=== PATIENT | male | born 1965 | race Caucasian/White ===

== ENCOUNTER 2017-02-01 04:45 | Emergency (ER) | payer SELFPAY ==
[2017-02-01 05:29] LABS: APPEARANCE,URINE CLEAR; BILIRUBIN,URINE NEGATIVE (NEGATIVE); GLUCOSE, URINE NEGATIVE (NEGATIVE); KETONES,URINE NEGATIVE (NEGATIVE); LEUKOCYTE ESTERASE,URINE NEGATIVE (NEGATIVE); NITRITE,URINE NEGATIVE (NEGATIVE); PROTEIN,URINE NEGATIVE (NEGATIVE); URINE SPECIFIC GRAVITY 1.014; UROBILINOGEN,URINE NEGATIVE mg/dL (<2.0)
[2017-02-01 05:51] LABS: ABSOLUTE LYMPHOCYTES (AUTO) 0.9 10^3/uL (0.5-4.7); ABSOLUTE MONOCYTES (AUTO) 0.5 10^3/uL (0.1-1.4); ABSOLUTE NEUT (AUTO) 8.7 10^3/uL (1.7-8.2); BASOPHILS % (AUTO) 0.4 % (0-2); EOSINOPHILS % (AUTO) 0.4 % (0-6); HEMATOCRIT 45.7 % (37.9-51.0); HEMOGLOBIN 15.8 g/dL (13.5-17.0); HGB HCT DIFFERENCE 1.7; LYMPHOCYTES % (AUTO) 9.1 % (13-45); MEAN CORPUSCULAR HEMOGLOBIN 29.6 pg (27.0-33.4); MEAN CORPUSCULAR HGB CONC 34.7 g/dL (32.0-36.0); MEAN CORPUSCULAR VOLUME 85 fl (80-97); MONOCYTES % (AUTO) 5.3 % (3-13); RED BLOOD COUNT 5.36 10^6/uL (4.35-5.55); RED CELL DISTRIBUTION WIDTH 13.7 % (11.5-14.0); SEGMENTED NEUTROPHILS % (AUTO) 84.8 % (42-78); WHITE BLOOD COUNT 10.2 10^3/uL (4.0-10.5)
[2017-02-01] MEDS ORDERED: ASPIRIN 81 MG TABLET, CHEWABLE PO ONE (06:01)
[2017-02-01 06:31] LABS: ALANINE AMINOTRANSFERASE 36 U/L (21-72); ALBUMIN 4.2 g/dL (3.5-5.0); ALKALINE PHOSPHATASE 72 U/L (38-126); ANION GAP 12 (5-19); ASPARTATE AMINO TRANSFERASE 25 U/L (17-59); BILIRUBIN,DIRECT 0.3 mg/dL (0.0-0.4); BILIRUBIN,TOTAL 0.4 mg/dL (0.2-1.3); BLOOD UREA NITROGEN 18 mg/dL (7-20); CALCIUM 9.3 mg/dL (8.4-10.2); CARBON DIOXIDE 26 mmol/L (22-30); CHLORIDE 104 mmol/L (98-107); CREATININE RESULT 0.89 mg/dL (0.52-1.25); GLUCOSE 109 mg/dL (75-110); LIPASE 82.3 U/L (23-300); SODIUM 141.5 mmol/L (137-145)
[2017-02-01 06:34] LABS: CREATINE KINASE MB 0.71 ng/mL (<4.55)
[2017-02-01] MEDS ORDERED: MAG HYDROX/AL HYDROX/SIMETH SUSP 30 ML UDCUP PO ONE (06:44)
[2017-02-01] MEDS ORDERED: LIDOCAINE 2% VISCOUS SOLN 20 ML UDCUP PO ONE (06:44)
[2017-02-01] MEDS ORDERED: NORMAL SALINE 1000 ML 1,000 ML IV ONE (06:44)
[2017-02-01] MEDS ORDERED: METOCLOPRAMIDE HCL ORAL SOLN 10 MG/10 ML UDCUP PO ONE (06:44)
[2017-02-01 06:48] LABS: TROPONIN I < 0.012 ng/mL
--- NOTE | 2017-02-01 07:33 | RADIOLOGY REPORT (SQ) ---
EXAM DESCRIPTION: CHEST SINGLE VIEW COMPLETED DATE/TIME: 02/01/2017 7:16 am REASON FOR STUDY: epigastric pain COMPARISON: None. EXAM PARAMETERS: NUMBER OF VIEWS: One view. TECHNIQUE: Single frontal radiographic view of the chest acquired. RADIATION DOSE: NA LIMITATIONS: None. FINDINGS: LUNGS AND PLEURA: No opacities, masses or pneumothorax. No pleural effusion. MEDIASTINUM AND HILAR STRUCTURES: No masses. Contour normal. HEART AND VASCULAR STRUCTURES: Heart normal in size. Normal vasculature. BONES: No acute findings. HARDWARE: None in the chest. OTHER: No other significant finding. IMPRESSION: NO ACUTE RADIOGRAPHIC FINDING IN THE CHEST. TECHNICAL DOCUMENTATION: JOB ID: [id number]
--- NOTE | 2017-02-01 07:57 | ER Document Report ---
ED General - General Chief Complaint: Upper Abdominal Pain Stated Complaint: ABDOMINAL PAIN TRAVEL OUTSIDE OF THE [place] IN LAST 30 DAYS: No - HPI Patient complains to provider of: Epigastric abdominal pain Notes: Patient coming in for evaluation of epigastric pain ongoing since last night. Patient states last meal last night was pork chops. Patient states it has nausea and intermittent for last few weeks better after belching patient states of the night this became very intense therefore came to the ER for further evaluation. Patient states she has known gallbladder issues however does not follow-up with surgery. Patient does have PCP no recent travel no fevers at home patient is currently symptomatic upon my evaluation. - Related Data Allergies/Adverse Reactions: erythromycin base Allergy (Verified 02/01/17 04:57) hydroxyzine [From Vistaril] Allergy (Verified 02/01/17 04:57) Penicillins Allergy (Verified 02/01/17 04:57) Past Medical History - Social History Smoking Status: Never Smoker Family History: Reviewed & Not Pertinent Patient has suicidal ideation: No Patient has homicidal ideation: No Pulmonary Medical History: Reports: Hx Asthma Renal/ Medical History: Denies: Hx Peritoneal Dialysis Review of Systems - Review of Systems Constitutional: No symptoms reported EENT: No symptoms reported Cardiovascular: No symptoms reported Respiratory: No symptoms reported Gastrointestinal: Abdominal pain Genitourinary: No symptoms reported Male Genitourinary: No symptoms reported Musculoskeletal: No symptoms reported Skin: No symptoms reported Hematologic/Lymphatic: No symptoms reported Neurological/Psychological: No symptoms reported -: Yes All other systems reviewed and negative Physical Exam - Vital signs Vitals: Temp Pulse Resp BP Pulse Ox 97.8 F 103 H 18 170/108 H 99 02/01/17 04:52 02/01/17 04:52 02/01/17 04:52 02/01/17 04:52 02/01/17 04:52 Interpretation: Normal - General General appearance: Appears well, Alert - HEENT Head: Normocephalic, Atraumatic Eyes: Normal Pupils: PERRL - Respiratory Respiratory status: No respiratory distress Chest status: Nontender Breath sounds: Normal Chest palpation: Normal - Cardiovascular Rhythm: Regular Heart sounds: Normal auscultation Murmur: No - Abdominal Inspection: Normal Distension: No distension Bowel sounds: Normal Tenderness: Nontender Organomegaly: No organomegaly - Back Back: Normal, Nontender - Extremities General upper extremity: Normal inspection, Nontender, Normal color, Normal ROM , Normal temperature General lower extremity: Normal inspection, Nontender, Normal color, Normal ROM , Normal temperature, Normal weight bearing. No: Hayley's sign - Neurological Neuro grossly intact: Yes Cognition: Normal Orientation: AAOx4 [place] Coma Scale Eye Opening: Spontaneous Vane Coma Scale Verbal: Oriented [place] Coma Scale Motor: Obeys Commands [place] Coma Scale Total: 15 Speech: Normal Motor strength normal: LUE, RUE, LLE, RLE Sensory: Normal - Psychological Associated symptoms: Normal affect, Normal mood - Skin Skin Temperature: Warm Skin Moisture: Dry Skin Color: Normal Course - Re-evaluation Re-evalutation: 02/01/17 13:51 The patient has atypical chest pain as the patient's chest pain is not suggestive of pulmonary embolus, cardiac ischemia, aortic dissection, or other serious etiology. Given the extremely low risk of these diagnoses further testing and evaluation for these possibilities does not appear to be indicated at this time. The patient has been instructed to return if the symptoms worsen or change in any way. The patient presents with abdominal pain without signs of peritonitis or other life-threatening or serious etiology. The patient appears stable for discharge and has been instructed to return immediately if the symptoms worsen in any way, or in 8-12hr if not improved for re-evaluation. The patient has been instructed to return if the symptoms worsen or change in any way. 02/01/17 13:51 Pain-free on discharge patient was encouraged to start taking his Prilosec again will treat with Bentyl encouraged follow-up primary care physician and GI - Vital Signs Vital signs: Temp Pulse Resp BP Pulse Ox 97.8 F 103 H 11 L 138/95 H 99 02/01/17 04:52 02/01/17 04:52 02/01/17 08:01 02/01/17 08:01 02/01/17 08:01 - Laboratory Result Diagrams: 02/01/17 05:32 02/01/17 05:32 Laboratory results interpreted by me: 02/01/17 05:32 Seg Neutrophils % 84.8 H Lymphocytes % 9.1 L Absolute Neutrophils 8.7 H Discharge - Discharge Clinical Impression: Epigastric abdominal pain Condition: Good Disposition: HOME, SELF-CARE Instructions: Abdominal Pain ([facility]) Additional Instructions: Please restart your Prilosec. You may also take the Bentyl for pain control as prescribed. Take Tylenol and Motrin. Return to ER if symptoms worsen. Follow- up with your primary care physician. Highly recommend that he follow-up with a GI specialist for a colonoscopy and EGD. Your lab work today does not show any significant cause of your pain. Prescriptions: Ondansetron [Zofran Odt 4 mg Tablet] 4 mg PO Q4HP PRN #30 tab.rapdis PRN Reason: Dicyclomine HCl [Bentyl 20 mg Tablet] 20 mg PO QID #30 tablet Forms: Return to Work
[2017-02-01 08:14] VITALS: BP 138/95
--- NOTE | 2017-02-01 21:31 | EKG REPORT ---
SEVERITY:- BORDERLINE ECG - SINUS RHYTHM BORDERLINE T ABNORMALITIES, INFERIOR LEADS : Confirmed by: Anais Fang 01-Feb-2017 21:31:08
== END 2017-02-01 08:14 | disposition home or self-care (01) ==
LOC: ER 04:45
DX: R10.13 Epigastric pain (principal); R10.10 Upper abdominal pain, unspecified
CPT/HCPCS: 93005; 99284; 36415; 82553; 82550; 83690; 85025; 80053; 81001; 84484; 71010; 93010; J3490; J7030

== ENCOUNTER 2017-06-06 23:41 | Emergency (ER) | payer MEDICAID ==
[2017-06-07] MEDS ORDERED: NORMAL SALINE 1000 ML 1,000 ML IV ONE (00:33)
[2017-06-07] MEDS ORDERED: MORPHINE SULFATE 10 MG/ML INJ IV ONE (00:33)
[2017-06-07] MEDS ORDERED: ONDANSETRON HCL INJ/PF 4 MG/2 ML SDV IV ONE (00:33)
--- NOTE | 2017-06-07 00:35 | ER Document Report ---
ED General - General Chief Complaint: Abdominal Pain Stated Complaint: ABDOMINAL PAIN Time Seen by Provider: 06/07/17 00:26 Notes: Patient is a 51-year-old male who presents with complaint of pain in his abdomen is mainly epigastric and left upper quadrant as well as recurrent vomiting. No fevers. No diarrhea. Symptoms started approximately 3 hours ago. He does have a history of a hiatal hernia. He used to take Prilosec but does not take it anymore. He also has a history of gallbladder issues but has never had a cholecystectomy. He does have a history of appendectomy. No other abdominal surgeries. No chest pain. No shortness of breath. No other complaints at this time. He says he has had episodes similar to this approximately 3 times in the past. TRAVEL OUTSIDE OF THE [place] IN LAST 30 DAYS: No - Related Data Allergies/Adverse Reactions: erythromycin base Allergy (Verified 02/01/17 04:57) hydroxyzine [From Vistaril] Allergy (Verified 02/01/17 04:57) Penicillins Allergy (Verified 02/01/17 04:57) Past Medical History - Social History Smoking Status: Never Smoker Frequency of alcohol use: None Drug Abuse: None Family History: Reviewed & Not Pertinent Pulmonary Medical History: Reports: Hx Asthma Renal/ Medical History: Denies: Hx Peritoneal Dialysis Review of Systems - Review of Systems Notes: My Normal Review Basic REVIEW OF SYSTEMS: CONSTITUTIONAL : Denies fever, chills, or sweats. Denies recent illness. EENT: Denies eye, ear, throat, or mouth pain or symptoms. Denies nasal or sinus congestion. CARDIOVASCULAR: Denies chest pain. RESPIRATORY: Denies cough, cold, or chest congestion. Denies shortness of breath, difficulty breathing, or wheezing. GASTROINTESTINAL: Left upper quadrant abdominal pain with vomiting. MUSCULOSKELETAL: Denies neck or back pain or joint pain or swelling. SKIN: Denies rash or skin lesions. NEUROLOGICAL: Denies altered mental status or loss of consciousness. Denies headache. Denies weakness or paralysis or loss of use of either side. Denies problems with gait or speech. Denies sensory or motor loss. ALL OTHER SYSTEMS REVIEWED AND NEGATIVE. Physical Exam - Vital signs Vitals: Temp Pulse Resp BP Pulse Ox 97.8 F 99 20 158/100 H 98 06/06/17 23:48 06/06/17 23:48 06/06/17 23:48 06/06/17 23:48 06/06/17 23:48 - Notes Notes: General Appearance: Well nourished, alert, cooperative, no acute distress, no obvious discomfort. Really vomiting during exam. Vitals: reviewed, See vital signs table. Head: no swelling or tenderness to the head Eyes: PERRL, EOMI, Conjuctiva clear Mouth: No decreasd moisture Throat: No tonsillar inflammation, No airway obstruction, No lymphadenopathy Lungs: No wheezing, No rales, No rhonci, No accessory muscle use, good air exchange bilaterally. Heart: Normal rate, Regular rythm, No murmur, no rub Abdomen: Normal BS, soft, No rigidity, moderate left upper quadrant abdominal tenderness palpation. Remainder of abdomen is nontender., No guarding, no rebound, no abdominal masses, no organomegaly Extremities: strength 5/5 in all extremities, good pulses in all extremities, no swelling or tenderness in the extremities, no edema. Skin: warm, dry, appropriate color, no rash Neuro: speech clear, oriented x 3, normal affect, responds appropriately to questions. Course - Re-evaluation Re-evalutation: 06/07/17 03:21 Patient is feeling improved. Protonix and GI cocktail seemed to help him the most. His ultrasound does show a possible polyp or sludge in the gallbladder. They said it could also be a nonshadowing stone by think this is unlikely being that it is not creating a shadow. I suspect this most likely a polyp. I did explain this to him and told him that he will have to ultimately follow up in surgery clinic for reevaluation to see if he needs elective gallbladder removal or just repeat ultrasounds. Patient is understanding of this. Once x-rays back I will reevaluate the patient and dispo from there. 06/07/17 05:25 X-rays are normal. Patient's symptoms have continued to resolve. I suspect this most likely is related to his hiatal hernia and gastritis. He may have a nonbleeding ulcer. He has not been vomiting blood or having black tarry stools. I talked to him about this. Talked about diet changes. Also informed him to follow-up with the GI doctor for endoscopy. I will place him back on Prilosec as well as put him on Carafate. Patient also mentioned that he uses Symbicort inhaler and had developed some thrush on his tongue. He says it is improving but he still has a little bit there. Is just very mild thrush in his tongue. I will give him nystatin until the swish and spit it for the next couple days. I strongly encouraged him to drink clear liquids for next 24 hours and then switch to a very bland diet. I encouraged him return to ER if he is vomiting of blood, trouble vomiting, abdominal pain, feels he is getting worse. Patient agrees with plan will be discharged home. She also had what appeared to be likely a polyp in his gallbladder. I did inform him of this after his ultrasounds performed but informed him I do not think is causing his symptoms as he is [place] no right upper quadrant abdominal pain palpation. It informed they should follow-up with his doctor surgeon for repeat ultrasound. Have to get up with this and his discharge instructions and I therefore will call his phone number to leave a message to make sure to remind him to follow- up in regards to this. Dictation of this chart was performed using voice recognition software; therefore, there may be some unintended grammatical errors. - Vital Signs Vital signs: Temp Pulse Resp BP Pulse Ox 98.0 F 99 17 140/82 H 95 06/07/17 04:47 06/06/17 23:48 06/07/17 03:01 06/07/17 02:11 06/07/17 03:01 - Laboratory Result Diagrams: 06/07/17 01:20 06/07/17 01:20 Laboratory results interpreted by me: 06/07/17 06/07/17 01:20 01:20 WBC 14.4 H RBC 5.87 H Seg Neutrophils % 82.2 H Lymphocytes % 10.7 L Absolute Neutrophils 11.8 H BUN 21 H Glucose 112 H - EKG Interpretation by Me Additional EKG results interpreted by me: 06/07/17 01:45 EKG is reviewed and interpreted by me. EKG shows normal sinus rhythm with rate of [address] segment elevation or depression. No ischemic T-wave inversions. IA interval, QRS duration, QTc intervals are within normal range. Old EKG for comparison is from February 01, 2017. Discharge - Discharge Clinical Impression: Vomiting Qualifiers: Vomiting type: unspecified Vomiting Intractability: non-intractable Nausea presence: with nausea Qualified Code(s): R11.2 - Nausea with vomiting, unspecified Abdominal pain Qualifiers: Abdominal location: left upper quadrant Qualified Code(s): R10.12 - Left upper quadrant pain Condition: Good Disposition: HOME, SELF-CARE Additional Instructions: ABDOMINAL PAIN: There are many causes of abdominal pain. Pain can mean a serious problem requiring surgery (such as appendicitis). It can also be an innocent problem that goes away on its own (such as a viral infection). Often, time must pass to determine the cause of pain. The physician does not feel that hospitalization is necessary, at present. Things may change within the next 24 hours. Call the doctor or come back for re- examination if any problems occur, such as: (1) Pain that becomes more severe, steady, or becomes concentrated in one specific area. Also, pain that is more severe with movement or coughing. (2) Vomiting that persists or becomes more frequent. (3) Blood in the vomitus, urine, or bowel movements. Blood in the stool may have a tarry or black appearance. (4) Shaking chills or fever greater than 100 degrees F. (5) The abdomen becomes more distended or swollen. (6) Bowel movements cease. (7) Failure to improve as expected. NORMAL EXAM AND WORKUP: At this time, your examination and workup show no significant abnormality. No significant abnormal physical findings are noted. All laboratory, EKG, and imaging (x-ray, ultrasound) studies that were ordered show no significant abnormality. Although your examination and all studies that were ordered showed no significant abnormal finding, there are no examinations and no studies that are 100% accurate. There is always the possibility that some abnormality could exist and not be detected with physical examination or within the limits and capabilities of laboratory and other studies. You should return or follow up as you were instructed on your visit today for further evaluation if your symptoms do not resolve. PAIN MEDICATION INJECTION: You have received an injection of a pain medication. You should experience significant pain relief within 45 minutes. This drug is a narcotic - - it will impair your judgement, slow your reaction time and make you sleepy ( as well as relieve your pain). Narcotics also can cause nausea. You should not drive, work with machinery, or perform any task requiring mental alertness until all effects of the medication are gone -- six to eight hours. Do not take any alcohol, or sedatives, and do not take any other medication without checking with your physician. ANTINAUSEA MEDICATION: You have been given a medication to suppress nausea and vomiting. This type of medication can be given as a shot, pill, or suppository. It will usually last for many hours. Pills and shots usually last six to eight hours, suppositories last about 12 hours. For the typical illness, only one or two doses of the medication may be necessary. Mild lightheadedness may occur. This type of medicine can cause drowsiness. Do not drive or operate dangerous machinery while under its influence. Do not mix with alcohol. See your doctor at once if you have muscle spasms or tightness, or uncontrollable motions (particularly of the neck, mouth, or jaw). Persistent vomiting or severe lightheadedness should also be evaluated by the physician. FOLLOW-UP CARE: If you have been referred to a physician for follow-up care, call the physician s office for an appointment as you were instructed or within the next two days. If you experience worsening or a significant change in your symptoms, notify the physician immediately or return to the Emergency Department at any time for re-evaluation. I suspect you have gastritis or a nonbleeding ulcer. I will place you back on prilosec as well as a medication called Carafate. PLease drink clear liqiods for the next 24 hours. Avoid caffeine. Than progress to a diet without fat, fired foods, or acidic foods. please follow up with the GI physician, Dr. Barrera or Dr. Hatfield, for a close follow up appointment. Please return to the ER immediately if you have severe pain, fevers, vomiting, vomiting of blood, or black stools. Prescriptions: Nystatin 100,000 unit PO BID 7 Days Omeprazole Magnesium [Prilosec Otc] 20 mg PO BID #30 tablet. Sucralfate [Carafate Susp 1 Gm/10 Ml Udcup] 1 gm PO ACHS 10 Days udc Referrals: YEVGENIY ZAMAN MD [Primary Care Provider] - Follow up as needed ROSA MARIA HATFIELD MD [ACTIVE STAFF] - Follow up in 3-5 days JULIUS HARTMANN MD [ACTIVE STAFF] - Follow up in 3-5 days
[2017-06-07 01:41] LABS: ABSOLUTE EOSINOPHILS # (AUTO) 0.1 10^3/uL (0.0-0.6); ABSOLUTE LYMPHOCYTES (AUTO) 1.5 10^3/uL (0.5-4.7); ABSOLUTE MONOCYTES (AUTO) 0.9 10^3/uL (0.1-1.4); ABSOLUTE NEUT (AUTO) 11.8 10^3/uL (1.7-8.2); BASOPHILS % (AUTO) 0.3 % (0-2); EOSINOPHILS % (AUTO) 0.8 % (0-6); HEMATOCRIT 49.4 % (37.9-51.0); HEMOGLOBIN 16.7 g/dL (13.5-17.0); LYMPHOCYTES % (AUTO) 10.7 % (13-45); MEAN CORPUSCULAR HEMOGLOBIN 28.4 pg (27.0-33.4); MEAN CORPUSCULAR HGB CONC 33.8 g/dL (32.0-36.0); MEAN CORPUSCULAR VOLUME 84 fl (80-97); PLATELET COUNT 259 10^3/uL (150-450); RED BLOOD COUNT 5.87 10^6/uL (4.35-5.55); RED CELL DISTRIBUTION WIDTH 13.2 % (11.5-14.0); SEGMENTED NEUTROPHILS % (AUTO) 82.2 % (42-78); TOTAL CELLS COUNTED % (AUTO) 100 %; WHITE BLOOD COUNT 14.4 10^3/uL (4.0-10.5)
[2017-06-07 01:53] LABS: ALANINE AMINOTRANSFERASE 53 U/L (21-72); ALBUMIN 4.7 g/dL (3.5-5.0); ALKALINE PHOSPHATASE 92 U/L (38-126); ANION GAP 15 (5-19); ASPARTATE AMINO TRANSFERASE 30 U/L (17-59); BILIRUBIN,DIRECT 0.2 mg/dL (0.0-0.4); BILIRUBIN,TOTAL 0.3 mg/dL (0.2-1.3); BLOOD UREA NITROGEN 21 mg/dL (7-20); CALCIUM 10.2 mg/dL (8.4-10.2); CARBON DIOXIDE 27 mmol/L (22-30); CHLORIDE 102 mmol/L (98-107); GLUCOSE 112 mg/dL (75-110); LIPASE 101.2 U/L (23-300); POTASSIUM 4.3 mmol/L (3.6-5.0); SODIUM 144.1 mmol/L (137-145); TOTAL PROTEIN 7.7 g/dL (6.3-8.2)
[2017-06-07] MEDS ORDERED: LIDOCAINE 2% VISCOUS SOLN 20 ML UDCUP PO ONE (02:15)
[2017-06-07] MEDS ORDERED: METOCLOPRAMIDE HCL ORAL SOLN 10 MG/10 ML UDCUP PO ONE (02:15)
[2017-06-07] MEDS ORDERED: MAG HYDROX/AL HYDROX/SIMETH SUSP 30 ML UDCUP PO ONE (02:15)
[2017-06-07] MEDS ORDERED: PANTOPRAZOLE SODIUM 40 MG VIAL IV ONE (02:44)
--- NOTE | 2017-06-07 02:49 | RADIOLOGY REPORT (SQ) ---
EXAM DESCRIPTION: U/S ABDOMEN LTD W/DOPPLER CLINICAL HISTORY: , epigastric pain COMPARISON: None. TECHNIQUE: Real-time sonographic images of the right upper abdomen were obtained using a curved multihertz transducer. FINDINGS: The visualized portions of the pancreas are unremarkable. The visualized portions of the aorta and IVC are unremarkable. The liver has normal contour and increased echogenicity. Hepatopedal flow in the portal vein. Common bile duct measures 0.5 cm. No gallbladder wall thickening or pericholecystic fluid. Within the gallbladder lumen there is a nonmobile nonshadowing echogenic focus measuring 1.1 cm. The right kidney measures 10.8 cm in length. No hydronephrosis, solid renal mass, or shadowing calculi. IMPRESSION: 1. Within the gallbladder lumen there is a 1.1 cm echogenic structure which is not mobile and nonshadowing. Differential considerations include nonshadowing gallstone, sludge ball, or polyp. Continued follow-up recommended. 2. Hepatic steatosis.
--- NOTE | 2017-06-07 04:15 | RADIOLOGY REPORT (SQ) ---
EXAM DESCRIPTION: ACUTE ABDOMEN SERIES CLINICAL HISTORY: abdominal pain and vomiting COMPARISON: None. FINDINGS: Single view of the chest with upright and spine views of the abdomen. Cardiomediastinal silhouette has normal size and contour. No consolidation, pneumothorax, or pleural effusion. Leads overlie the chest. Scattered air-filled loops of nondilated large and small bowel throughout the abdomen. No definite free intraperitoneal air. No acute osseous abnormalities. Leads overlie the abdomen and chest. IMPRESSION: 1. No acute pulmonary process. 2. Nonspecific bowel gas pattern.
[2017-06-07 05:26] VITALS: BP 117/80
--- NOTE | 2017-06-07 08:00 | EKG REPORT ---
SEVERITY:- NORMAL ECG - SINUS RHYTHM : Confirmed by: Miley Mcfarlane MD 07-Jun-2017 07:59:02
== END 2017-06-07 05:15 | disposition home or self-care (01) ==
LOC: ER 23:41
DX: R10.13 Epigastric pain (principal); R10.12 Left upper quadrant pain; R11.2 Nausea with vomiting, unspecified
CPT/HCPCS: 93005; 99285; 96361; 96374; 96375; 36415; 83690; 85025; 80053; 74022; 76705; 93976; 93010; J3490 ×3; J2270; S0164; J2405; J7030

== ENCOUNTER 2017-06-12 09:17 | Observation (INO) | payer MEDICAID ==
[2017-06-12] MEDS ORDERED: LIDOCAINE 2% INJ-PF (20 MG/ML) 2 ML AMPUL ONE (09:25)
[2017-06-12] MEDS ORDERED: DEXAMETHASONE SOD PHOSPHATE INJ 4 MG/1 ML VIAL ONE (09:25)
[2017-06-12] MEDS ORDERED: ONDANSETRON HCL INJ/PF 4 MG/2 ML SDV ONE (09:25)
[2017-06-12] MEDS ORDERED: SUCCINYLCHOLINE CHLORIDE INJ 200 MG/10 ML VIAL ONE (09:25)
[2017-06-12] MEDS ORDERED: ROCURONIUM BROMIDE INJ 50 MG/5 ML VIAL IV ONE (09:25)
[2017-06-12] MEDS ORDERED: METOCLOPRAMIDE HCL INJ/PF 10 MG/2 ML SDV ONE (09:25)
[2017-06-12] MEDS ORDERED: NORMAL SALINE 1000 ML 1,000 ML IV ONE ×2 (09:46→13:37)
[2017-06-12] MEDS ORDERED: ONDANSETRON HCL INJ/PF 4 MG/2 ML SDV IV ONE (09:46)
[2017-06-12] MEDS ORDERED: MORPHINE SULFATE 10 MG/ML INJ IV ONE (09:47)
--- NOTE | 2017-06-12 09:50 | ER Document Report ---
ED Medical Screen (RME) - General Chief Complaint: Abdominal Pain Stated Complaint: ABDOMINAL PAIN Time Seen by Provider: 06/12/17 09:39 Notes: This 51-year-old male patient comes emergency room complaining of severe epigastric and left upper quadrant abdominal pain with nausea and vomiting that he cannot control. He reports the pain started in January and he had a single episode then. He did get a GI cocktail that time that did not help. He had a recurrence of the pain was seen here on 06/06/2017, he got a GI cocktail, which she does not think helped, but he did get morphine at the same time and that may be the reason why he felt better. He also got Protonix and was thinking that may have helped until I explained to him how Protonix works, then he mentioned that he had gotten morphine about the same time as a GI cocktail. Gallbladder ultrasound at that time suggested perhaps a polyp or some sludge. He had what sounds like a retrocecal appendix removed about 14 or 15 years ago. He is complaining of pain and holding his left upper quadrant region stating the pain goes into his back. His blood pressure is quite high. Due to the nature his pain, history of GI cocktail not really helping on 2 occasions, and a recent gallbladder ultrasound that does not explain his pain, I will order additional lab work and CT scan with contrast to help clarify what may be going on in his abdomen. I have greeted and performed a rapid initial assessment of this patient. A comprehensive ED assessment and evaluation of the patient, analysis of test results and completion of the medical decision making process will be conducted by additional ED providers. TRAVEL OUTSIDE OF THE [place] IN LAST 30 DAYS: No - Related Data Allergies/Adverse Reactions: erythromycin base Allergy (Verified 06/12/17 09:18) hydroxyzine [From Vistaril] Allergy (Verified 06/12/17 09:18) Penicillins Allergy (Verified 06/12/17 09:18) Past Medical History - Social History Chew tobacco use (# tins/day): No Frequency of alcohol use: None Drug Abuse: None Pulmonary Medical History: Reports: Hx Asthma Renal/ Medical History: Denies: Hx Peritoneal Dialysis Past Surgical History: Reports: Hx Appendectomy Physical Exam - Vital signs Vitals: Temp Pulse Resp BP Pulse Ox 98.1 F 96 21 H 191/130 H 98 06/12/17 09:22 06/12/17 09:22 06/12/17 09:22 06/12/17 09:22 06/12/17 09:22 Course - Vital Signs Vital signs: Temp Pulse Resp BP Pulse Ox 98.1 F 96 21 H 191/130 H 98 06/12/17 09:22 06/12/17 09:22 06/12/17 09:22 06/12/17 09:22 06/12/17 09:22
[2017-06-12 10:26] LABS: ABSOLUTE EOSINOPHILS # (AUTO) 0.1 10^3/uL (0.0-0.6); ABSOLUTE LYMPHOCYTES (AUTO) 1.2 10^3/uL (0.5-4.7); ABSOLUTE MONOCYTES (AUTO) 0.6 10^3/uL (0.1-1.4); BASOPHILS % (AUTO) 0.3 % (0-2); EOSINOPHILS % (AUTO) 0.7 % (0-6); HEMATOCRIT 47.4 % (37.9-51.0); HEMOGLOBIN 16.1 g/dL (13.5-17.0); LYMPHOCYTES % (AUTO) 12.1 % (13-45); MEAN CORPUSCULAR HEMOGLOBIN 28.5 pg (27.0-33.4); MEAN CORPUSCULAR HGB CONC 33.8 g/dL (32.0-36.0); MEAN CORPUSCULAR VOLUME 84 fl (80-97); PLATELET COUNT 271 10^3/uL (150-450); RED BLOOD COUNT 5.63 10^6/uL (4.35-5.55); RED CELL DISTRIBUTION WIDTH 13.2 % (11.5-14.0); SEGMENTED NEUTROPHILS % (AUTO) 80.9 % (42-78); TOTAL CELLS COUNTED % (AUTO) 100 %; WHITE BLOOD COUNT 9.9 10^3/uL (4.0-10.5)
[2017-06-12 10:38] LABS: APPEARANCE,URINE CLEAR; BILIRUBIN,URINE NEGATIVE (NEGATIVE); COLOR,URINE YELLOW; GLUCOSE, URINE NEGATIVE (NEGATIVE); KETONES,URINE NEGATIVE (NEGATIVE); LEUKOCYTE ESTERASE,URINE NEGATIVE (NEGATIVE); NITRITE,URINE NEGATIVE (NEGATIVE); PROTEIN,URINE NEGATIVE (NEGATIVE); URINE SPECIFIC GRAVITY 1.017; UROBILINOGEN,URINE NEGATIVE mg/dL (<2.0)
[2017-06-12 10:43] LABS: ALANINE AMINOTRANSFERASE 50 U/L (21-72); ALBUMIN 4.4 g/dL (3.5-5.0); ALKALINE PHOSPHATASE 83 U/L (38-126); ANION GAP 11 (5-19); ASPARTATE AMINO TRANSFERASE 31 U/L (17-59); BILIRUBIN,DIRECT 0.2 mg/dL (0.0-0.4); BILIRUBIN,TOTAL 0.3 mg/dL (0.2-1.3); BLOOD UREA NITROGEN 12 mg/dL (7-20); CARBON DIOXIDE 28 mmol/L (22-30); CHLORIDE 104 mmol/L (98-107); GLUCOSE 121 mg/dL (75-110); POTASSIUM 4.4 mmol/L (3.6-5.0); SODIUM 142.8 mmol/L (137-145); TOTAL PROTEIN 7.6 g/dL (6.3-8.2)
[2017-06-12] MEDS ORDERED: PANTOPRAZOLE SODIUM 40 MG VIAL IV ONE (11:07)
[2017-06-12] MEDS ORDERED: METOCLOPRAMIDE HCL INJ/PF 10 MG/2 ML SDV IV ONE (11:07)
--- NOTE | 2017-06-12 13:24 | RADIOLOGY REPORT (SQ) ---
EXAM DESCRIPTION: CT ABD/PELVIS WITH IV ORAL COMPLETED DATE/TIME: 06/12/2017 1:02 pm REASON FOR STUDY: epigastric and LUQ abd pain COMPARISON: None. TECHNIQUE: CT scan of the abdomen and pelvis performed using helical scanning technique with dynamic intravenous contrast injection. No oral contrast. Images reviewed with lung, soft tissue, and bone windows. Reconstructed coronal and sagittal MPR images reviewed. Delayed images for evaluation of the urinary system also acquired. All images stored on PACS. All CT scanners at this facility use dose modulation, iterative reconstruction, and/or weight based d osing when appropriate to reduce radiation dose to as low as reasonably achievable (ALARA). [facility]: Dose Right [facility]: CareDose [facility]: Dose Right [facility]: Teradose 4D [facility]: LookBooker CONTRAST TYPE AND DOSE: contrast/concentration: Isovue 370.00 mg/ml; Total Contrast Delivered: 100.0 ml; Total Saline Delivered: 72.0 ml 100 mL Isovue intravenously RENAL FUNCTION: Creatinine 1.02 RADIATION DOSE: CT Rad equipment meets quality standard of care and radiation dose reduction techniq ues were employed. CTDIvol: 10.1 - 14.5 mGy. DLP: 1472 mGy-cm.. LIMITATIONS: None. FINDINGS: LOWER CHEST: Hazy atelectatic markings right lung base. LIVER: Normal size. No masses. No dilated ducts. SPLEEN: Normal size. No focal lesions. PANCREAS: No masses. No significant calcifications. No adjacent inflammation or peripancreatic fluid collections. Pancreatic duct not dilated. GALLBLADDER: Small calcified gallstone is seen, with minor wall thickening and possible trace pericho lecystic fluid. Consider ultrasound follow-up for possible cholecystitis. ADRENAL GLANDS: No significant masses or asymmetry. RIGHT KIDNEY AND URETER: No solid masses. No significant calcifications. No hydronephrosis or hyd roureter. LEFT KIDNEY AND URETER: No solid masses. No significant calcifications. No hydronephrosis or hydr oureter. AORTA AND VESSELS: No AAA. RETROPERITONEUM: No retroperitoneal adenopathy, hemorrhage or masses. BOWEL AND PERITONEAL CAVITY: No masses or inflammatory changes. No free fluid or peritoneal masses. APPENDIX: Normal. PELVIS: No mass. No free fluid. Normal bladder. ABDOMINAL WALL: Slight bulging inguinal rings. No bowel herniation. BONES: No significant or acute findings. OTHER: No other significant finding. IMPRESSION: Nonobstructive bowel pattern. Small calcified gallstone. Consider ultrasound follow-up to evaluate for possible cholecystitis, wit h minor wall thickening of the gallbladder and trace pericholecystic fluid. TECHNICAL DOCUMENTATION: JOB ID: [id number] Quality ID # [id number]: Final reports with documentation of one or more dose reduction techniques (e.g., Au tomated exposure control, adjustment of the mA and/or kV according to patient size, use of iterative reconstruction technique) 2010 [employer]- All Rights Reserved
[2017-06-12] MEDS ORDERED: LEVOFLOXACIN 500 MG/D5W RTU 500 MG/100 ML RTUPB IV ONE (13:34)
[2017-06-12] MEDS ORDERED: ONDANSETRON HCL INJ/PF 4 MG/2 ML SDV IV PRN ×3 (14:40→19:33)
[2017-06-12] MEDS ORDERED: MORPHINE SULFATE 10 MG/ML INJ IV PRN (14:40)
--- NOTE | 2017-06-12 14:45 | ER Document Report ---
ED General - General Chief Complaint: Abdominal Pain Stated Complaint: ABDOMINAL PAIN Time Seen by Provider: 06/12/17 09:39 TRAVEL OUTSIDE OF THE [place] IN LAST 30 DAYS: No - HPI Patient complains to provider of: Abdominal pain Notes: Patient coming in for epigastric abdominal pain. Patient states ongoing issue since January. Patient states last meal was tung greens with meat states in the middle night workup with severe epigastric pain. Nausea vomiting. Patient denies any fevers. Upon my evaluation patient received morphine states feeling improved however pain continues. States ultrasound that showed a gallstone on his last visit in May. She has not followed up with the GI specialty. Patient also states not seeing a primary care. Patient states pain is increased anytime he eats or drinks anything. - Related Data Allergies/Adverse Reactions: erythromycin base Allergy (Verified 06/12/17 09:18) hydroxyzine [From Vistaril] Allergy (Verified 06/12/17 09:18) Penicillins Allergy (Verified 06/12/17 09:18) Past Medical History - Social History Smoking Status: Never Smoker Chew tobacco use (# tins/day): No Frequency of alcohol use: None Drug Abuse: None Family History: Reviewed & Not Pertinent Patient has suicidal ideation: No Patient has homicidal ideation: No Pulmonary Medical History: Reports: Hx Asthma Renal/ Medical History: Denies: Hx Peritoneal Dialysis Past Surgical History: Reports: Hx Appendectomy Review of Systems - Review of Systems Constitutional: No symptoms reported EENT: No symptoms reported Cardiovascular: No symptoms reported Respiratory: No symptoms reported Gastrointestinal: Abdominal pain, Nausea, Vomiting Genitourinary: No symptoms reported Male Genitourinary: No symptoms reported Musculoskeletal: No symptoms reported Skin: No symptoms reported Hematologic/Lymphatic: No symptoms reported Neurological/Psychological: No symptoms reported -: Yes All other systems reviewed and negative Physical Exam - Vital signs Vitals: Temp Pulse Resp BP Pulse Ox 98.1 F 84 21 H 191/130 H 98 06/12/17 09:18 06/12/17 09:18 06/12/17 09:18 06/12/17 09:18 06/12/17 09:18 Interpretation: Normal - General General appearance: Appears well, Alert - HEENT Head: Normocephalic, Atraumatic Eyes: Normal Pupils: PERRL - Respiratory Respiratory status: No respiratory distress Chest status: Nontender Breath sounds: Normal Chest palpation: Normal - Cardiovascular Rhythm: Regular Heart sounds: Normal auscultation Murmur: No - Abdominal Inspection: Normal Distension: No distension Bowel sounds: Normal Tenderness: Tender - Moderate to severe tenderness in the epigastric region with voluntary guarding Organomegaly: No organomegaly - Back Back: Normal, Nontender - Extremities General upper extremity: Normal inspection, Nontender, Normal color, Normal ROM , Normal temperature General lower extremity: Normal inspection, Nontender, Normal color, Normal ROM , Normal temperature, Normal weight bearing. No: Hayley's sign - Neurological Neuro grossly intact: Yes Cognition: Normal Orientation: AAOx4 [place] Coma Scale Eye Opening: Spontaneous Vane Coma Scale Verbal: Oriented [place] Coma Scale Motor: Obeys Commands Vane Coma Scale Total: 15 Speech: Normal Motor strength normal: LUE, RUE, LLE, RLE Sensory: Normal - Psychological Associated symptoms: Normal affect, Normal mood - Skin Skin Temperature: Warm Skin Moisture: Dry Skin Color: Normal Course - Re-evaluation Re-evalutation: 06/12/17 14:44 CT scan showed thickened gallbladder wall with pericholecystic fluid. IV antibiotics were given did discuss with surgeon on-call states he will come and evaluate patient approximately 1 hour. Did update the patient patient is gratified that there is a etiology for his abdominal pain I did discuss with the possibility of surgery. States understanding. Patient will kept n.p.o. maintenance fluids given. - Vital Signs Vital signs: Temp Pulse Resp BP Pulse Ox 98.1 F 96 21 H 191/130 H 98 06/12/17 09:22 06/12/17 09:22 06/12/17 09:22 06/12/17 09:22 06/12/17 09:22 - Laboratory Result Diagrams: 06/12/17 10:05 06/12/17 10:05 Laboratory results interpreted by me: 06/12/17 06/12/17 06/12/17 09:50 10:05 10:05 RBC 5.63 H Seg Neutrophils % 80.9 H Lymphocytes % 12.1 L Glucose 121 H Urine Blood SMALL H Discharge - Discharge Clinical Impression: Acute cholecystitis Condition: Good Admitting Provider: Surgicalist - [facility] Admitted: OR Referrals: YEVGENIY ZAMAN MD [Primary Care Provider] - Follow up as needed
[2017-06-12] MEDS ORDERED: NORMAL SALINE 1000 ML 1,000 ML IV PRN ×2 (15:41→19:34)
--- NOTE | 2017-06-12 15:41 | PDOC H&P ---
History of Present Illness Admission Date/PCP: YEVGENIY ZAMAN MD Patient complains of: epigastric and RUQ pains asso with N/V History of Present Illness: KEYUR ZEPEDA is a 51 year old male C/O epigastric and RUQ pains radiating to the back asso with N/V since last night. Had at least 2 other episodes in recent pass. CT scan abd showed gallstone with thickened wall Past Medical History Pulmonary Medical History: Reports: Asthma GI Medical History: Reports: Gastroesophageal Reflux Disease Past Surgical History Past Surgical History: Reports: Appendectomy Social History Smoking Status: Never Smoker - Advance Directive Resuscitation Status: Full Code Family History Family History: Reviewed & Not Pertinent Parental Family History Reviewed: Yes - father with heart disease Children Family History Reviewed: No Sibling(s) Family History Reviewed.: No Medication/Allergy Home Medications: Albuterol Sulfate [Proair HFA] 2 puff IH BIDP PRN 06/12/17 Budesonide/Formoterol Fumarate [Symbicort HFA 160-4.5 mcg Inhaler 6 gm] 1 puff IH BID 06/12/17 Nystatin [Mycostatin 768091 Unit/1 ml Susp 60 ml Btl] 1 ml PO BID 06/12/17 Omeprazole 20 mg PO BID 06/12/17 Allergies/Adverse Reactions: erythromycin base Allergy (Verified 06/12/17 09:18) hydroxyzine [From Vistaril] Allergy (Verified 06/12/17 09:18) Penicillins Allergy (Verified 06/12/17 09:18) Review of Systems Constitutional: PRESENT: other - no fever/chills Eyes: PRESENT: other - no visual/hearing problems Cardiovascular: PRESENT: other - no chest pains Respiratory: PRESENT: other - no cough Gastrointestinal: PRESENT: abdominal pain, nausea, vomiting Genitourinary: PRESENT: other - no dysuria Musculoskeletal: PRESENT: other - no joint swelling Integumentary: PRESENT: other - no rash Neurological: PRESENT: other - no seizures Psychiatric: PRESENT: anxiety Endocrine: PRESENT: other - no polyuria Hematologic/Lymphatic: PRESENT: other - no easy bruisability Physical Exam Vital Signs: Temp Pulse Resp BP Pulse Ox 98.1 F 96 15 117/66 98 06/12/17 09:22 06/12/17 09:22 06/12/17 15:01 06/12/17 15:01 06/12/17 15:28 Intake & Output 06/11/17 06/12/17 06/13/17 06:59 06:59 06:59 Weight 93.8 kg General appearance: PRESENT: mild distress Head exam: PRESENT: atraumatic Eye exam: PRESENT: conjunctiva pink Mouth exam: PRESENT: moist, tongue midline Neck exam: PRESENT: full ROM Respiratory exam: PRESENT: clear to auscultation karissa Cardiovascular exam: PRESENT: RRR Pulses: PRESENT: normal radial pulses Vascular exam: PRESENT: normal capillary refill GI/Abdominal exam: PRESENT: Lemus's sign, soft, tenderness - tenderness RUQ and epigastric areas Rectal exam: PRESENT: deferred Extremities exam: PRESENT: full ROM Musculoskeletal exam: PRESENT: ambulatory Neurological exam: PRESENT: alert, oriented to person, oriented to place, oriented to time, oriented to situation Psychiatric exam: PRESENT: anxious Skin exam: PRESENT: normal color, warm Results Laboratory Results: 06/12/17 10:05 06/12/17 10:05 06/12/17 06/12/17 06/12/17 09:50 10:05 10:05 WBC 9.9 RBC 5.63 H Hgb 16.1 Hct 47.4 MCV 84 MCH 28.5 MCHC 33.8 RDW 13.2 Plt Count 271 Seg Neutrophils % 80.9 H Lymphocytes % 12.1 L Monocytes % 6.0 Eosinophils % 0.7 Basophils % 0.3 Absolute Neutrophils 8.0 Absolute Lymphocytes 1.2 Absolute Monocytes 0.6 Absolute Eosinophils 0.1 Absolute Basophils 0.0 Sodium 142.8 Potassium 4.4 Chloride 104 Carbon Dioxide 28 Anion Gap 11 BUN 12 Creatinine 1.02 Est GFR ( Amer) > 60 Est GFR (Non-Af Amer) > 60 Glucose 121 H Calcium 10.0 Total Bilirubin 0.3 AST 31 ALT 50 Alkaline Phosphatase 83 Total Protein 7.6 Albumin 4.4 Lipase 109.0 Urine Color YELLOW Urine Appearance CLEAR Urine pH 5.0 Ur Specific [place] 1.017 Urine Protein NEGATIVE Urine Glucose (UA) NEGATIVE Urine Ketones NEGATIVE Urine Blood SMALL H Urine Nitrite NEGATIVE Ur Leukocyte Esterase NEGATIVE Urine WBC (Auto) 1 Urine RBC (Auto) 0 Impressions: Abdomen/Pelvis CT 06/12/17 09:46 IMPRESSION: Nonobstructive bowel pattern. Small calcified gallstone. Consider ultrasound follow-up to evaluate for possible cholecystitis, with minor wall thickening of the gallbladder and trace pericholecystic fluid. Assessment & Plan - Diagnosis (1) Cholelithiasis Qualifiers: Cholecystitis presence: with cholecystitis Cholecystitis acuity: acute Biliary obstruction: without biliary obstruction Is this a current diagnosis for this admission?: Yes - Time Time Spent: 30 to 50 Minutes - Inpatient Certification I certify that my determination is in accordance with my understanding of Medicare's requirements for reasonable and necessary INPATIENT services [42 CFR 412.3e].: Yes Medical Necessity: Need For IV Fluids, Need for Pain Control, Need for IV Antibiotics, Need for Surgery - Plan Summary Plan Summary: Hydrate IV antibiotics For lap levy
[2017-06-12] MEDS ORDERED: PROPOFOL INJ 200 MG/20 ML VIAL IV ONE (16:40)
[2017-06-12] MEDS ORDERED: EPHEDRINE SULFATE INJ 50 MG/1 ML AMPULE ONE (16:40)
[2017-06-12] MEDS ORDERED: MIDAZOLAM 2 MG/2 ML INJ ONE (16:40)
[2017-06-12] MEDS ORDERED: ACETAMINOPHEN 100 ML IV ONE (16:40)
[2017-06-12] MEDS ORDERED: FENTANYL CITRATE INJ/PF 100 MCG/2 ML AMPUL ONE ×2 (16:40→18:32)
[2017-06-12] MEDS ORDERED: HYDROMORPHONE HCL INJ/PF 2 MG/ML AMPULE ONE (16:41)
[2017-06-12] MEDS ORDERED: BUPIVACAINE HCL 0.25% /EPINEPHRINE INJ/PF 30 ML SDV ONE (16:47)
[2017-06-12] MEDS ORDERED: FENTANYL CITRATE INJ/PF 100 MCG/2 ML AMPUL IV PRN ×3 (17:21)
[2017-06-12] MEDS ORDERED: DIPHENHYDRAMINE HCL 50 MG/ML VIAL IV PRN (17:21)
[2017-06-12] MEDS ORDERED: MEPERIDINE HCL/PF INJ 25 MG/1 ML DISP.SYRIN IV PRN (17:21)
[2017-06-12] MEDS ORDERED: PROMETHAZINE HCL INJ 25 MG/1 ML VIAL IV PRN ×2 (17:21)
[2017-06-12] MEDS ORDERED: OXYCODONE-ACETAMINOPHEN 5-325 MG TABLET PO PRN ×2 (17:21)
--- NOTE | 2017-06-12 19:43 | OPERATIVE REPORT E ---
Operative Report NAME: KEYUR ZEPEDA : 1965 AGE: 51Y DATE OF SURGERY: 06/12/2017 ROOM: ED06 PREOPERATIVE DIAGNOSIS: 1. Acute and chronic cholecystitis. 2. Cholelithiasis. POSTOPERATIVE DIAGNOSIS: 1. Acute and chronic cholecystitis. 2. Cholelithiasis. OPERATION: Laparoscopic cholecystectomy. SURGEON: BENEDICTO DE GUZMAN M.D. ANESTHESIA: General. INDICATION: This is a 51-year-old male with right upper quadrant and epigastric pains for the past 24 hours. He did have some discomfort in the past few months, at least twice. He had a CAT scan of the abdomen that showed gallstones with thickened gallbladder wall. His liver enzymes are normal. DESCRIPTION OF PROCEDURE: After adequate general anesthesia, the patient was placed in supine position and the abdomen prepped and draped in the usual sterile fashion. Appropriate timeout was called. Next, an infraumbilical incision was made, the fascia opened, and a Manning trocar inserted through the abdominal cavity. CO2 insufflated up to a pressure of 15 mmHg.Three other trocars were placed, a 12-mm in the subxiphoid and two 5-mm in the right upper quadrant. The gallbladder was noted to be incased in omentum with thick adhesions. Blunt dissection and with the use of Harmonic hayden were done to dissect the adhesion on the wall of the gallbladder. The tip of the gallbladder was subsequently grasped and pulled over the liver. The thick adhesions were gently dissected and debrided with the use of Harmonic hayden. The infundibulum eventually was able to be identified, and this was then grasped with another grasper. The cystic duct had a lot of adhesions, and dissection was carried out gingerly with the use of a [place] dissector and the use of Harmonic hayden. Cystic artery was then identified and clipped proximally and divided with the use of Harmonic hayden. Cystic duct area was then identified and clipped 3 times proximally and the distal close to the gallbladder and divided between the distal clips. The gallbladder was dissected off the liver bed with the use of Harmonic hayden. Adequate hemostasis was noted after dissection from the liver bed. The gallbladder was completely taken off the liver bed with the use of Harmonic hayden. There was an inadvertant leak on the mid part of the gallbladder, and this was then controlled with placement of a grasper. There was at least 1 big stone that was grasped at the area of the infundibulum during the dissection. The gallbladder was then placed in an Endobag and pulled out through the umbilical port. The operative site was then copiously irrigated with saline solution, and no acute bleeding was noted. However, because of the dense adhesions, a Abrahan-De La Torre drain was then placed in the gallbladder bed area and brought out through one of the right upper quadrant ports. It was then anchored to the skin with 3-0 nylon. All the trocars were then removed and CO2 allowed to come out through the trocar sites. The infraumbilical fascial defect was then closed with [id number] suture using 0 Vicryl. All the skin incisions were then closed with running subcuticular closure using 4-0 Vicryl undyed. Dermabond dressing was used on top of the incisions. The patient tolerated the procedure well. Needle, instrument, and sponge count were all correct, and estimated blood loss about 30 cc. The patient then brought to the recovery room in satisfactory condition. DICTATING PHYSICIAN: BENEDICTO DE GUZMAN M.D. [id number] PHY#: [id number] ID: [id number] JOB#: [id number] ACCT: [id number] cc:BENEDICTO DE GUZMAN M.D. > MTDD
[2017-06-12] MEDS: MORPHINE SULFATE 10 MG/ML INJ IV PRN (21:07)
[2017-06-13] MEDS: MORPHINE SULFATE 10 MG/ML INJ IV PRN ×2 (01:04→06:12)
[2017-06-13 08:07] LABS: HEMATOCRIT 42.1 % (37.9-51.0); HEMOGLOBIN 14.1 g/dL (13.5-17.0); MEAN CORPUSCULAR HEMOGLOBIN 28.5 pg (27.0-33.4); MEAN CORPUSCULAR HGB CONC 33.5 g/dL (32.0-36.0); MEAN CORPUSCULAR VOLUME 85 fl (80-97); PLATELET COUNT 261 10^3/uL (150-450); RED BLOOD COUNT 4.96 10^6/uL (4.35-5.55); RED CELL DISTRIBUTION WIDTH 13.2 % (11.5-14.0); WHITE BLOOD COUNT 15.3 10^3/uL (4.0-10.5)
[2017-06-13 08:23] LABS: ALANINE AMINOTRANSFERASE 70 U/L (21-72); ALBUMIN 3.8 g/dL (3.5-5.0); ALKALINE PHOSPHATASE 72 U/L (38-126); ANION GAP 11 (5-19); ASPARTATE AMINO TRANSFERASE 48 U/L (17-59); BILIRUBIN,DIRECT 0.1 mg/dL (0.0-0.4); BILIRUBIN,TOTAL 0.5 mg/dL (0.2-1.3); BLOOD UREA NITROGEN 9 mg/dL (7-20); CALCIUM 9.4 mg/dL (8.4-10.2); CARBON DIOXIDE 26 mmol/L (22-30); CHLORIDE 105 mmol/L (98-107); GLUCOSE 121 mg/dL (75-110); LIPASE 78.4 U/L (23-300); POTASSIUM 4.3 mmol/L (3.6-5.0); SODIUM 142.2 mmol/L (137-145); TOTAL PROTEIN 6.3 g/dL (6.3-8.2)
[2017-06-13 08:45] LABS: ABSOLUTE LYMPHOCYTES# (MANUAL) 0.8 10^3/uL (0.5-4.7); ABSOLUTE MONOCYTES # (MANUAL) 0.5 10^3/uL (0.1-1.4); ABSOLUTE NEUTROPHILS# (MANUAL) 14.1 10^3/uL (1.7-8.2); BASOPHILS % (MANUAL) 0 % (0-2); EOSINOPHILS % (MANUAL) 0 % (0-6); LYMPHOCYTES % (MANUAL) 5 % (13-45); MONOCYTES % (MANUAL) 3 % (3-13); RBC MORPHOLOGY COMMENT NORMO-CYTIC/CHROMIC; SEGMENTED NEUTROPHILS % (MAN) 92 % (42-78); TOTAL CELLS COUNTED 100; TOXIC GRANULATION 1+
[2017-06-13 08:46] LABS: PLATELET COMMENT ADEQUATE
[2017-06-13 09:15] VITALS: BP 191/130
[2017-06-13] MEDS ORDERED: ONDANSETRON 4 MG TAB.RAPDIS PO ONE (09:30)
[2017-06-13] MEDS ORDERED: TRAMADOL HCL 50 MG TABLET PO ONE (09:30)
[2017-06-13] MEDS ORDERED: LEVOFLOXACIN 500 MG/D5W RTU 500 MG/100 ML RTUPB IV ONE ×2 (10:00→14:00)
== END 2017-06-13 10:30 | disposition home or self-care (01) ==
LOC: ER 09:17 → EH 15:50 → 2N 20:41
PROVIDERS: ATTEND Surgery
PROC: 0FT44ZZ Resection of Gallbladder, Percutaneous Endoscopic Approach (ICD-10-PCS; principal; 2017-06-12 17:00)
DX: K80.12 Calculus of gallbladder with acute and chronic cholecystitis without obstruction (principal); J45.909 Unspecified asthma, uncomplicated; F41.9 Anxiety disorder, unspecified; Z90.49 Acquired absence of other specified parts of digestive tract; Z79.899 Other long term (current) drug therapy; Z79.51 Long term (current) use of inhaled steroids
CPT/HCPCS: 36415 ×2; 83690 ×2; 85025 ×2; 80053 ×2; 81001; 88304 ×2; 74177; 47562; J2250; J1956; J3490 ×3; J1100; S0119; J3010; J2765; J2270 ×2; J1170; S0164; J0330; J2405; J7030 ×2; J2704; J0131; 790; 96361; 96365; 96375; 96376; 99285